=== PATIENT | male | born 1940 | race Caucasian/White ===

== ENCOUNTER 2020-08-05 07:13 | Outpatient (CLI) | payer MEDICARE ==
--- NOTE | 2020-08-05 12:19 | NM ---
RADIONUCLIDE GASTRIC EMPTYING SCAN: HISTORY: Gastroparesis RADIOPHARMACEUTICAL: 2 mCi technetium 99m sulfur colloid administered orally in scrambled eggs. FINDINGS: Gastric emptying at different times is as follows: 1 hour: 63% 2 hours: 71% 3 hours: 77% 4 hours: 87% IMPRESSION: Delayed gastric emptying.
== END 2020-08-05 07:14 | disposition home or self-care (01) ==
LOC: NM 07:13
PROVIDERS: ATTEND Internal Medicine Gastroenterology
DX: K31.84 Gastroparesis (principal)
CPT/HCPCS: 78264; A9541

== ENCOUNTER 2021-01-05 08:13 | Outpatient (CLI) | payer MEDICARE ==
[2021-01-05] MEDS ORDERED: Magnevist 469MG/ML 20 ML VIAL ONE (09:30)
== END 2021-01-05 08:14 | disposition home or self-care (01) ==
LOC: TBSIIMAG 08:13
PROVIDERS: ATTEND Urology
DX: N40.2 Nodular prostate without lower urinary tract symptoms (principal)
CPT/HCPCS: 72197; 82565; A9579

== ENCOUNTER 2023-06-23 09:45 | Outpatient (CLI) | payer MEDICARE ==
[2023-06-23 12:07] LABS: #Basophils 0.1 10x3/uL (0.0-0.2); #Eosinphils 0.2 10x3/uL (0.0-0.5); #Monocytes 0.4 10x3/uL (0.0-1.1); #Neutrophils 4.4 10x3/uL (1.5-8.4); %Eosinophils 2.2 % (0.0-6.0); %Lymphocytes 23.2 % (18.0-47.0); %Monocytes 6.5 % (0.0-10.0); %Neutrophils 65.6 % (40.0-75.0); Hematocrit 43.6 % (38.8-50.0); Hemoglobin 14.2 g/dL (13.5-17.5); Mean Corpuscular HGB CONC 32.6 g/dL (32.0-36.0); Mean Corpuscular Hemoglobin 30.1 pg (27.0-33.0); Mean Corpuscular Volume 92.4 fl (81.2-95.1); Mean Platelet Volume 10.4 fl (7.4-10.4); Platelet Count 232 10x3/uL (150-450); Red Blood Cell (RBC) Count 4.72 10x6/uL (4.32-5.72); White Blood Cell (WBC) Count 6.7 10x3/uL (3.5-10.5)
[2023-06-23 12:15] LABS: ALT (SGPT) 26 U/L (8-55); AST (SGOT) 19 U/L (5-34); Albumin 4.2 g/dL (3.4-4.8); Alkaline Phosphatase 66 U/L (40-110); Anion Gap 11 mmol/L (10-20); BUN (Urea Nitrogen) 18 mg/dL (8.4-25.7); Bilirubin, Total 0.5 mg/dL (0.2-1.2); Calc. Creatinine Clearance 0 mL/min (70-130); Calcium 9.3 mg/dL (7.8-10.44); Carbon Dioxide 28 mmol/L (23-31); Chloride 104 mmol/L (98-107); Estimated GFR 71; Globulin 2.5 g/dL (2.4-3.5); Glucose 248 mg/dL (83-110); Potassium 4.3 mmol/L (3.5-5.1); Protein, Total 6.7 g/dL (5.8-8.1); Sodium 139 mmol/L (136-145)
== END 2023-06-23 09:46 | disposition home or self-care (01) ==
LOC: LABBT 09:45
PROVIDERS: ATTEND Surgery
DX: Z01.818 Encounter for other preprocedural examination (principal)
CPT/HCPCS: 80053; 85025; 93005; 93010

== ENCOUNTER 2024-02-13 09:27 | Outpatient (CLI) | payer MEDICARE | END 2024-02-13 09:28 | disposition home or self-care (01) | LOC: MRI 09:27 → SCSMRI 09:28 | PROVIDERS: ATTEND Internal Medicine Gastroenterology | DX: K86.1 Other chronic pancreatitis (principal); R10.13 Epigastric pain; K76.89 Other specified diseases of liver; K86.2 Cyst of pancreas | CPT/HCPCS: 74183; 76377 ==

== ENCOUNTER 2025-03-06 06:24 | Day surgery (SDC) | payer MEDICARE ==
[2025-03-05 15:07] VITALS: BMI 22.7
[2025-03-06 06:43] LABS: #Basophils 0.08 10x3/uL (0.0-0.2); #Eosinophils 0.34 10x3/uL (0.0-0.7); #Monocytes 0.64 10x3/uL (0.11-0.59); #Neutrophils 4.83 10x3/uL (1.40-6.50); %Basophils 0.9 % (0.0-1.0); %Eosinophils 3.8 % (0.0-10.0); %Lymphocytes 33.3 % (21.0-51.0); %Monocytes 7.1 % (0.0-10.0); %Neutrophils 53.9 % (42.0-75.0); Hematocrit 46.9 % (42.0-52.0); Hemoglobin 14.2 g/dL (14.0-18.0); Mean Corpuscular Hemoglobin 27.6 pg (27.0-31.0); Mean Corpuscular Volume 91.1 fL (78.0-98.0); Platelet Count 323 10x3/uL (130-400); Red Blood Cell (RBC) Count 5.15 mill/uL (4.70-6.10); White Blood Cell (WBC) Count 8.97 10x3/uL (4.8-10.8)
[2025-03-06 06:57] LABS: INR-International Normal Ratio 1.1; Prothrombin Time 14.6 sec (12.0-14.7)
[2025-03-06 06:58] LABS: ALT (SGPT) 99 U/L (Less than 45); AST (SGOT) 45 U/L (11-34); Albumin 4.2 g/dL (3.1-4.5); Alkaline Phosphatase 246 U/L (40-110); Anion Gap 12 mmol/L (10-20); BUN (Urea Nitrogen) 20 mg/dL (8.4-25.7); Bilirubin, Direct 0.3 mg/dL (0.1-0.3); Bilirubin, Total 0.7 mg/dL (0.3-1.2); Calc. Creatinine Clearance 48 mL/min (70-130); Calcium 10.4 mg/dL (7.8-10.44); Carbon Dioxide 30 mmol/L (23-31); Chloride 105 mmol/L (98-107); Glucose 137 mg/dL (83-110); PTT 38.5 sec (22.9-36.1); Potassium 4.1 mmol/L (3.5-5.1); Sodium 143 mmol/L (136-145)
[2025-03-06] MEDS ORDERED: PROPOFOL 20 ML ONE (07:08)
[2025-03-06] MEDS ORDERED: Rocuronium Bromide 10 MG/ML (10ML VIAL) ONE (07:08)
[2025-03-06] MEDS ORDERED: Iopamidol 45 ML ONE (07:24)
[2025-03-06] MEDS ORDERED: Ondansetron PF 4 MG/2 ML Vial ONE (07:33)
[2025-03-06] MEDS ORDERED: LevoFLOXacin D5W 500 mg (100 mL) BAG ONE (07:35)
[2025-03-06] MEDS ORDERED: Metoprolol Tartrate 5 MG (5 mL) VIAL ONE (08:09)
[2025-03-06] MEDS ORDERED: SUGAMMADEX SODIUM 200 MG/2 ML VIAL ONE (08:23)
== END 2025-03-06 10:44 | disposition home or self-care (01) ==
LOC: SDC 06:24
PROVIDERS: ATTEND Internal Medicine Gastroenterology
PROC: 0FC98ZZ Extirpation of Matter from Common Bile Duct, Via Natural or Artificial Opening Endoscopic (ICD-10-PCS; principal; 2025-03-06)
DX: K80.50 Calculus of bile duct without cholangitis or cholecystitis without obstruction (principal); R74.8 Abnormal levels of other serum enzymes; K83.8 Other specified diseases of biliary tract; K21.9 Gastro-esophageal reflux disease without esophagitis; I48.91 Unspecified atrial fibrillation; K86.1 Other chronic pancreatitis; E11.9 Type 2 diabetes mellitus without complications; E78.00 Pure hypercholesterolemia, unspecified; Z79.899 Other long term (current) drug therapy; Z79.01 Long term (current) use of anticoagulants
CPT/HCPCS: 43262; 43264; 74330; 80048; 80076; 85025; 85610; 85730; C1725; J1100; J1956; J2405; J2704; Q9967; 36415

== ENCOUNTER 2025-03-10 00:44 | Inpatient (IN) | payer MEDICARE ==
[2025-03-10 01:12] LABS: #Basophils 0.08 10x3/uL (0.0-0.2); #Eosinophils 0.28 10x3/uL (0.0-0.7); #Monocytes 0.76 10x3/uL (0.11-0.59); #Neutrophils 8.76 10x3/uL (1.40-6.50); %Basophils 0.6 % (0.0-1.0); %Eosinophils 2.2 % (0.0-10.0); %Lymphocytes 19.2 % (21.0-51.0); %Monocytes 6.1 % (0.0-10.0); %Neutrophils 70.0 % (42.0-75.0); Hematocrit 42.8 % (42.0-52.0); Hemoglobin 13.4 g/dL (14.0-18.0); Mean Corpuscular Hemoglobin 27.9 pg (27.0-31.0); Mean Corpuscular Volume 89.0 fL (78.0-98.0); Platelet Count 300 10x3/uL (130-400); Red Blood Cell (RBC) Count 4.81 mill/uL (4.70-6.10); White Blood Cell (WBC) Count 12.53 10x3/uL (4.8-10.8)
[2025-03-10 01:25] LABS: INR-International Normal Ratio 1.2; PTT 37.1 sec (22.9-36.1); Prothrombin Time 15.0 sec (12.0-14.7)
[2025-03-10 02:40] LABS: ALT (SGPT) 43 U/L (Less than 45); AST (SGOT) 34 U/L (11-34); Albumin 4.1 g/dL (3.1-4.5); Alkaline Phosphatase 167 U/L (40-110); Anion Gap 16 mmol/L (10-20); BUN (Urea Nitrogen) 26 mg/dL (8.4-25.7); Bilirubin, Total 0.6 mg/dL (0.3-1.2); Calc. Creatinine Clearance 0 mL/min (70-130); Calcium 10.0 mg/dL (7.8-10.44); Carbon Dioxide 26 mmol/L (23-31); Chloride 102 mmol/L (98-107); Globulin 3.5 g/dL (2.4-3.5); Glucose 165 mg/dL (83-110); Potassium 4.3 mmol/L (3.5-5.1); Sodium 140 mmol/L (136-145)
[2025-03-10 03:17] LABS: Lipase Greater than 4815 U/L (8-78)
[2025-03-10] MEDS ORDERED: Senokot S 8.6-50 MG TAB PO PRN (04:56)
[2025-03-10] MEDS ORDERED: Melatonin 3 MG TAB PO PRN (04:56)
[2025-03-10] MEDS ORDERED: Ondansetron PF 4 MG/2 ML Vial IVP PRN ×2 (05:00→07:44)
[2025-03-10] MEDS ORDERED: Electrolyte Replacement Protocol 1 EACH FS SCH (05:00)
[2025-03-10] MEDS ORDERED: Acetaminophen 325 MG TAB PO PRN (05:00)
[2025-03-10] MEDS ORDERED: Dextrose 50% Abboject 50 ML SYRINGE SLOW IVP PRN (05:02)
[2025-03-10] MEDS ORDERED: Glucagon 1 MG/ML KIT IM PRN (05:02)
[2025-03-10 05:32] VITALS: BMI 22.4
[2025-03-10] MEDS ORDERED: cefTRIAXone\\ROCEPHIN 1 GM in Sodium Chloride 0.9% 100 ML IVPB SCH (06:00)
[2025-03-10] MEDS: Apixaban 5 MG TAB PO SCH (08:29)
[2025-03-10] MEDS: Famotidine 20 MG TAB PO SCH (08:32)
[2025-03-10] MEDS ORDERED: Iopamidol 370 76% 100 ML VIAL ONE (11:27)
[2025-03-10] MEDS ORDERED: Enoxaparin 80 MG (0.8 mL) SYRINGE SC SCH (21:00)
[2025-03-11] MEDS: Acetaminophen/Codeine 30-300mg Tablet PO PRN (00:29)
[2025-03-11 04:11] VITALS: TEMP 98
[2025-03-11 05:43] LABS: ALT (SGPT) 22 U/L (Less than 45); AST (SGOT) 14 U/L (11-34); Albumin 3.0 g/dL (3.1-4.5); Alkaline Phosphatase 107 U/L (40-110); Anion Gap 11 mmol/L (10-20); BUN (Urea Nitrogen) 30 mg/dL (8.4-25.7); Bilirubin, Total 0.5 mg/dL (0.3-1.2); Calc. Creatinine Clearance 69 mL/min (70-130); Calcium 8.7 mg/dL (7.8-10.44); Carbon Dioxide 25 mmol/L (23-31); Chloride 110 mmol/L (98-107); Globulin 2.6 g/dL (2.4-3.5); Glucose 124 mg/dL (83-110); Potassium 4.3 mmol/L (3.5-5.1); Sodium 142 mmol/L (136-145)
[2025-03-11 07:08] LABS: #Basophils 0.04 10x3/uL (0.0-0.2); #Eosinophils 0.23 10x3/uL (0.0-0.7); #Monocytes 0.57 10x3/uL (0.11-0.59); #Neutrophils 5.91 10x3/uL (1.40-6.50); %Basophils 0.5 % (0.0-1.0); %Eosinophils 2.7 % (0.0-10.0); %Lymphocytes 20.7 % (21.0-51.0); %Monocytes 6.6 % (0.0-10.0); %Neutrophils 68.2 % (42.0-75.0); Hematocrit 32.1 % (42.0-52.0); Hemoglobin 10.1 g/dL (14.0-18.0); Mean Corpuscular Hemoglobin 28.1 pg (27.0-31.0); Mean Corpuscular Volume 89.4 fL (78.0-98.0); Platelet Count 240 10x3/uL (130-400); Red Blood Cell (RBC) Count 3.59 mill/uL (4.70-6.10); White Blood Cell (WBC) Count 8.65 10x3/uL (4.8-10.8)
[2025-03-11] MEDS ORDERED: Pantoprazole 40 MG VIAL IVP SCH (09:00)
[2025-03-11] MEDS: Aspirin 81 mg Enteric Coated Tablet PO SCH (09:56)
[2025-03-11] MEDS: Pantoprazole 40 MG DR.TAB PO SCH (09:57)
[2025-03-11 10:17] VITALS: BP 110/73
== END 2025-03-11 15:55 | disposition home or self-care (01) | DRG 439 ==
LOC: ERS 00:44 → 2SE 04:19 → MSONC 03-11 01:00
PROVIDERS: ADMIT Internal Medicine; ATTEND Hospitalist
DX: K85.90 Acute pancreatitis without necrosis or infection, unspecified (principal); K86.2 Cyst of pancreas; K86.1 Other chronic pancreatitis; I48.91 Unspecified atrial fibrillation; I10 Essential (primary) hypertension; K82.8 Other specified diseases of gallbladder; E78.5 Hyperlipidemia, unspecified; I48.0 Paroxysmal atrial fibrillation; E11.9 Type 2 diabetes mellitus without complications; Z98.890 Other specified postprocedural states; Z79.82 Long term (current) use of aspirin; Z79.01 Long term (current) use of anticoagulants; Z79.899 Other long term (current) drug therapy; Z79.84 Long term (current) use of oral hypoglycemic drugs
CPT/HCPCS: 36415; 36416; 74177; 76705; 80053; 83605; 83690; 84484; 85025; 85610; 85730; 93005; 96374; J3010; J7120; Q9967